=== PATIENT | female | born 1945 | race Caucasian/White ===

== ENCOUNTER → 2017-08-16 | Outpatient (CLI) | payer MEDICARE, OTHER ==
[~2017-08-16] MED LIST: AMITRIPTYLINE H50 M3 PO; ASPIR 8181 MG PO; BACTRIM DS TAB1 EACH PO; BENICAR40 MG PO; CRESTOR5 MG; FISH OIL 1,001000 M2 PO; FLAGYL500 MG; FLEXERIL PO; HIPREX1 GM PO; HYDROCHLOROTH12.5 MG PO; HYDROCODON-ACE1 EAC7 PO; IBUPROFEN 400400 M1 PO; KEFLEX500 M1 PO; LISINOPRIL-HCT1 EAC2 PO; MIRALAX17 GM PO; MIRALAX255 GM PO; NAPROSYN500 MG PO; NEXIUM40 MG PO; NORVASC5 M1 PO; OXYBUTYNIN 5 MG5 M1 PO; PERCOCET 5-3251 EACH PO; PROBIOTIC1 EAC4 PO; PROBIOTIC1 EACH; VICOPROFEN 2001 EACH PO
== END ==
LOC: M.ULTRA 08-15 16:44
DX: E04.2 Nontoxic multinodular goiter (principal); R59.9 Enlarged lymph nodes, unspecified

== ENCOUNTER → 2017-08-17 | Outpatient (CLI) | payer MEDICARE, OTHER | LOC: M.CT 15:04 | DX: I25.10 Atherosclerotic heart disease of native coronary artery without angina pectoris (principal); R59.0 Localized enlarged lymph nodes; J34.1 Cyst and mucocele of nose and nasal sinus; I70.0 Atherosclerosis of aorta; M25.78 Osteophyte, vertebrae; I65.29 Occlusion and stenosis of unspecified carotid artery; J32.8 Other chronic sinusitis; E04.9 Nontoxic goiter, unspecified ==

== ENCOUNTER → 2017-09-28 | Outpatient (CLI) | payer MEDICARE, OTHER ==
--- NOTE | 2017-10-03 17:17 | CARDNUC ---
[place] [address] CARDIAC NUCLEAR IMAGING REPORT Name: SCOTT DIGGS Room: [facility]#: [id number] Admission: 09/28/17 Attend Phys: Leatha Bowden MD Discharge: Date of : 41 Date of Service: 10/03/17 1717 Report #: [id number] THIS REPORT FOR: //name// APPROVED REPORT Exam: Nuclear Stress Test Indication: Chest pain Patient Location: Out-Patient Stress Tech: [facility] Stress Nurse: Savanna Sparrow RN Ht: 5 ft 7 in Wt: 174 lbs BSA: 1.91 m2 BMI: 27.2 Medical History Medical History: hypertension, diet controlled diabetes Medications: none Allergies: penicillin, cipro, macrodantin Previous Cardiac Procedures: none Exercise History: Indeterminate NM EXAM: Myocardial Perfusion REST/STRESS Imaging Protocol: Rest Tc-99m/Stress Tc-99m 1 day Resting Data Rest SPECT myocardial perfusion imaging was performed in supine position 45 minutes following the intravenous injection of 10.8 mCi of Tc-99m Sestamibi. Time of rest injection: 1310 Date: 09/28/2017 The images were gated to evaluate regional wall motion and calculate left ventricular ejection fraction. Administration Route: IV Administration Site: Left Hand Pharmacologic Stress Pharmacologic stress test was performed by injecting Regadenoson 0.4 mg IV push followed by the intravenous injection of 35.2 mCi of Tc-99m Sestamibi. Time of stress injection: 1435 Date: 09/28/2017 Administration Route: IV Administration Site: Left Hand Gated Stress SPECT was performed 45 minutes after stress injection. The images were gated to evaluate regional wall motion and calculate left [place] [address] CARDIAC NUCLEAR IMAGING REPORT Name: CATERINASCOTT Anthony Room: [facility]#: [id number] Admission: 09/28/17 Attend Phys: Leatha Bowden MD Discharge: Date of : 41 Date of Service: 10/03/17 1717 Report #: [id number] Prone imaging was performed. Study Quality Study: Good Artifact: No artifact Study Data At rest, the left ventricular ejection fraction was 78%.. Post stress, the left ventricular ejection was 81%.. TID = 0.86. Perfusion Normal left ventricular perfusion. Wall Motion Normal left ventricular wall motion. Nuclear Conclusion ECG Findings: negative for ischemia Clinical Findings: negative for ischemia Nuclear Findings: negative for ischemia Exercise Capacity: not assessed Left Ventricular Function: normal Risk Study: low Myocardial perfusion images show no defect to suggest infarct or ischemia. Left ventricular systolic function appears normal on gated studies. This is a low risk study. Interpreted by: Telly Garnica M.D. [facility] Electronically Approved: 10/03/2017 17:17:24 Stress Test Details Stress Test: Pharmacologic stress testing performed using 0.4 mg of regadenoson per 5 mL given IV over 10 seconds. Reason for pharmacologic stress test: physical limitation. HR Resting HR: 82 bpm Max Heart Rate (APMHR): 146 bpm Max HR Achieved: 118 bpm Target HR (85% APMHR): 124 bpm % of APMHR: 80 Recovery HR: 94 bpm BP Resting BP: 176/90 mmHg Max BP: 197/70 [place] [address] CARDIAC NUCLEAR IMAGING REPORT Name: SCOTT DIGGS [id number] Admission: 09/28/17 Attend Phys: Leatha Bowden MD Discharge: Date of : 41 Date of Service: 10/03/17 1717 Report #: [id number] ECG Resting ECG: Sinus Rhythm, normal EKG Stress ECG: Sinus Rhythm, normal EKG ST Change: None Arrhythmia: None Recovery ECG: Sinus Rhythm, normal EKG Recovery ST Change: None Recovery Arrhythmia: None Clinical Reason for Termination: Completed protocol Exercise duration: 0 min sec Exercise capacity: 1 METs The patient had no significant symptoms with Lexiscan infusion. Nurse Comments pt tolerated well Stress ECG Conclusion The baseline 12-lead electrocardiogram shows normal sinus rhythm without significant ST or T wave abnormality. EKGs during and post Lexiscan infusion show sinus rhythm without significant ST segment changes when compared to baseline. There were no stress-induced arrhythmias. <Conclusion> The baseline 12-lead electrocardiogram shows normal sinus rhythm without significant ST or T wave abnormality. EKGs during and post Lexiscan infusion show sinus rhythm without significant ST segment changes when compared to baseline. There were no stress-induced arrhythmias. <ELECTRONICALLY SIGNED> By: Telly Garnica MD, FACC 10/03/17 171 16 16 Telly Garnica MD, FACC /INF
== END ==
LOC: M.NUC 09-18 13:47
DX: I25.10 Atherosclerotic heart disease of native coronary artery without angina pectoris (principal); M54.2 Cervicalgia; I10 Essential (primary) hypertension; E11.9 Type 2 diabetes mellitus without complications

== ENCOUNTER → 2017-11-05 | Outpatient (CLI) | payer MEDICARE, OTHER ==
--- NOTE | 2017-11-05 14:46 | 2DMMODE ---
[place] [address] 2 D/M-MODE ECHOCARDIOGRAM Name: SCOTT DIGGS Room: [facility]#: [id number] Admission: 11/05/17 Attend Phys: Venkata Martinez, Discharge: Date of : 41 Date of Service: 11/05/17 1445 Report #: [id number] THIS REPORT FOR: //name// APPROVED REPORT Study performed: 11/05/2017 14:01:42 EXAM: Comprehensive 2D, Doppler, and color-flow Echocardiogram Patient Location: Out-Patient Status: routine BSA: 1.90 HR: 70 bpm BP: 123/70 mmHg Other Information Study Quality: Excellent Indications Murmur 2D Dimensions LVEF(%): 75.17 (>50%) IVSd: 11.02 (7-11mm) LVOT Diam: 20.87 (18-24mm) LVDd: 40.68 mm PWd: 12.45 (7-11mm) Ascending Ao: 27.90 (22-36mm) LVDs: 22.98 (25-40mm) Aortic Root: 30.78 mm Zarate's LVEF: 75.17 % Volumes Left Atrial Volume (Systole) LA ESV Index: 17.50 mL/m2 Aortic Valve AoV Peak Patrick.: 1.32 m/s AO Peak Gr.: 6.97 mmHg LVOT Max P.10 mmHg AO Mean Gr.: 3.80 mmHg LVOT Mean P.09 mmHg LVOT Max V: 1.23 m/s AO V2 VTI: 25.78 cm LVOT Mean V: 0.81 m/s SANDRINE (VTI): 3.51 cm2 LVOT V1 VTI: 26.44 cm Mitral Valve E/A Ratio: 0.82 MV Decel. Time: 240.35 [place] [address] 2 D/M-MODE ECHOCARDIOGRAM Name: SCOTT DIGGS Room: [facility]#: [id number] Admission: 11/05/17 Attend Phys: Venkata Martinez, Discharge: Date of : 41 Date of Service: 11/05/17 1445 Report #: [id number] MV E Max Patrick.: 0.76 m/s MV PHT: 69.70 ms MVA (PHT): 3.16 cm2 TDI E/Lateral E': 7.60 E/Medial E': 12.67 Medial E' Patrick.: 0.06 m/s Lateral E' Patrick.: 0.10 m/s Pulmonary Valve PV Peak Patrick.: 1.06 m/s PV Peak Gr.: 4.50 mmHg Tricuspid Valve TR Peak Gr.: 18.93 mmHg RVSP: 23.93 mmHg Left Ventricle The left ventricle is normal size. There is normal LV segmental wall motion. Mild concentric left ventricular hypertrophy. Left ventricular systolic function is normal. The left ventricular ejection fraction is within the normal range. LVEF is 60-65%. Grade I - abnormal relaxation pattern. Right Ventricle The right ventricle is normal size. The right ventricular systolic function is normal. Atria The left atrium size is normal. The right atrium size is normal. Aortic Valve The aortic valve is normal in structure. No aortic regurgitation is present. There is no aortic valvular stenosis. Mitral Valve The mitral valve is normal in structure. Trace mitral regurgitation. No evidence of mitral valve stenosis. Tricuspid Valve The tricuspid valve is normal in structure. Mild tricuspid regurgitation. The RVSP is __24 mmHg. Pulmonic Valve The pulmonary valve is normal in structure. There is no pulmonic [place] [address] 2 D/M-MODE ECHOCARDIOGRAM Name: SCOTT DIGGS Room: [facility]#: [id number] Admission: 11/05/17 Attend Phys: Venkata Martinez, Discharge: Date of : 41 Date of Service: 11/05/17 1445 Report #: [id number] Great Vessels The aortic root is normal in size. IVC is normal in size and collapses with >50% inspiration Pericardium There is no pericardial effusion. <Conclusion> Mild concentric left ventricular hypertrophy. LVEF is 60-65%. <ELECTRONICALLY SIGNED> By: Fer Mejía MD, [facility] 11/05/17 1445 1445 1445 Fer Mejía MD, FACC /INF
== END ==
LOC: M.CRD 10-25 17:07 → M.ULTRA 12:09
DX: I51.7 Cardiomegaly (principal); I07.1 Rheumatic tricuspid insufficiency; R25.2 Cramp and spasm; I73.9 Peripheral vascular disease, unspecified; I70.219 Atherosclerosis of native arteries of extremities with intermittent claudication, unspecified extremity

== ENCOUNTER 2017-12-03 06:54 | Emergency (ER) | payer MEDICARE, OTHER ==
[~2017-12-03] VITALS: Ht 170.2 cm; Wt 82.4 kg
[~2017-12-03 06:54] MED LIST changes: -ASPIR 8181 MG PO; -CRESTOR5 MG; -FISH OIL 1,001000 M2 PO; -FLEXERIL PO; -HIPREX1 GM PO; -HYDROCODON-ACE1 EAC7 PO; -KEFLEX500 M1 PO; -LISINOPRIL-HCT1 EAC2 PO; -MIRALAX17 GM PO; -NAPROSYN500 MG PO; -NORVASC5 M1 PO; -PROBIOTIC1 EAC4 PO
[2017-12-03] MEDS ORDERED: FISH OIL 1,001000 M2 PO (07:20)
[2017-12-03] MEDS ORDERED: PROBIOTIC1 EAC4 PO (07:20)
[2017-12-03] MEDS ORDERED: MIRALAX17 GM PO (07:20)
[2017-12-03] MEDS ORDERED: HIPREX1 GM PO (07:23)
[2017-12-03] MEDS ORDERED: KEFLEX500 M1 PO (07:23)
[2017-12-03] MEDS ORDERED: LISINOPRIL-HCT1 EAC2 PO (07:23)
[2017-12-03] MEDS ORDERED: NORVASC5 M1 PO (07:24)
[2017-12-03] MEDS ORDERED: ASPIR 8181 MG PO (07:24)
[2017-12-03 07:30] LABS: ABSOLUTE LYMPHOCYTES 1.1 thou/uL (0.8-5.3); ABSOLUTE MONOCYTES 0.5 thou/uL (0.0-1.2); ABSOLUTE NEUTROPHILS 3.1 thou/uL (1.6-8.1); BASOPHILS 0.5 %; HEMATOCRIT 38.7 % (37.0-47.0); HEMOGLOBIN 13.4 gm/dL (12.0-15.0); LYMPHOCYTES 23.1 %; MCHC 34.5 g/dL (28.0-37.0); MCV 95.7 fL (80.0-100.0); MONOCYTES 10.5 %; MPV 10.6 fl. (7.2-11.1); NUCLEATED RBCS 0 /100WBC; PLATELET COUNT* 131 thou/uL (150-400); POLYS 64.9 %; RBC 4.05 mil/uL (4.20-5.00); RDW-CV 13.1 % (10.5-14.5); WBC 4.8 thou/uL (4.0-11.0)
[2017-12-03 07:35] LABS: ANION GAP 9 mmol/L (7-16); BUN 22 mg/dL (7-18); CALCIUM 9.9 mg/dL (8.5-10.1); CHLORIDE 101 mmol/L (98-107); CO2 28 mmol/L (21-32); GLUCOSE 151 mg/dL (70-99); POTASSIUM 3.6 mmol/L (3.5-5.1); SODIUM 138 mmol/L (136-145)
[2017-12-03 07:41] LABS: INR 1.1; PROTIME 10.4 Seconds (9.20-11.50)
[2017-12-03 07:54] LABS: ALBUMIN 3.8 g/dL (3.4-5.0); ALKALINE PHOSPHATASE 163 U/L (46-116); CK-MB MASS 0.6 ng/mL (<0.5-3.6); LIPASE 323 U/L (73-393); NT-PRO BRAIN NAT PEPTIDE 40 pg/mL (<300); SGOT 38 U/L (15-37); SGPT 43 U/L (30-65); TOTAL BILIRUBIN 0.7 mg/dL (<0.1-1.0); TROPONIN-I LEVEL <0.06 ng/mL (<0.06)
[2017-12-03] MEDS ORDERED: NAPROSYN500 MG PO (09:33)
[2017-12-03] MEDS ORDERED: HYDROCODON-ACE1 EAC7 PO (09:33)
[2017-12-03] MEDS ORDERED: FLEXERIL PO (09:33)
[2017-12-03 09:38] VITALS: BP 137/62
--- NOTE | 2017-12-03 14:27 | EKG ---
[place] [address] ELECTROCARDIOGRAM REPORT Name: SCOTT DIGGS Room: [facility]#: [id number] Admission: 12/03/17 Attend Phys: Discharge: 12/03/17 Date of : 41 Report #: [id number] THIS REPORT FOR: //name// [facility] ED Test Date: 2017-12-03 Test Time: 07:01:20 Pat Name: SCOTT DIGGS Department: Room: Gender: F Town Marshal: Sebastian OLIVARES : 1945 Requested By: Bennett Roblero Order Number: [id number] MD: Silas Gillespie Measurements Intervals [place] Rate: 66 P: 64 HI: 179 QRS: 25 QRSD: 99 T: 78 QT: 420 QTc: 441 Interpretive Statements Sinus rhythm Minimal ST depression, lateral leads Compared to ECG 06/01/2017 12:17:27 ST (T wave) deviation now present Electronically Signed On 12-03-2017 14:27:03 CDT by Silas Gillespie [email or web address] <ELECTRONICALLY SIGNED> By: Silas Gillespie MD, [facility] 12/03/17 1427 0 0 Silas Gillespie MD, FACC /EPI
== END 2017-12-03 09:38 | disposition home or self-care (01) ==
LOC: M.ERS 06:54
PROVIDERS: Emergency Medicine
DX: R07.89 Other chest pain (principal); M54.6 Pain in thoracic spine; I10 Essential (primary) hypertension; E11.9 Type 2 diabetes mellitus without complications; Z90.710 Acquired absence of both cervix and uterus; Z90.89 Acquired absence of other organs; Z88.0 Allergy status to penicillin; Z88.8 Allergy status to other drugs, medicaments and biological substances; Z88.1 Allergy status to other antibiotic agents

== ENCOUNTER → 2017-12-19 | Outpatient (CLI) | payer MEDICARE, OTHER ==
[~2017-12-19] MED LIST changes: +ASPIR 8181 MG PO; +CRESTOR5 MG; +FISH OIL 1,001000 M2 PO; +FLEXERIL PO; +HIPREX1 GM PO; +HYDROCODON-ACE1 EAC7 PO; +KEFLEX500 M1 PO; +LISINOPRIL-HCT1 EAC2 PO; +MIRALAX17 GM PO; +NAPROSYN500 MG PO; +NORVASC5 M1 PO; +PROBIOTIC1 EAC4 PO
== END ==
LOC: M.RAD 12-13 13:27
DX: N63.20 Unspecified lump in the left breast, unspecified quadrant (principal); R92.8 Other abnormal and inconclusive findings on diagnostic imaging of breast; I25.10 Atherosclerotic heart disease of native coronary artery without angina pectoris

== ENCOUNTER 2018-02-25 19:39 | Emergency (ER) | payer MEDICARE, OTHER ==
[~2018-02-25] VITALS: Ht 170.2 cm; Wt 78.5 kg
[~2018-02-25 19:39] MED LIST changes: -CRESTOR5 MG
[2018-02-25] MEDS ORDERED: CRESTOR5 MG (19:59)
[2018-02-25 22:30] VITALS: BP 154/80
== END 2018-02-25 22:32 | disposition home or self-care (01) ==
LOC: M.ERS 19:39
DX: S81.011A Laceration without foreign body, right knee, initial encounter (principal); S40.022A Contusion of left upper arm, initial encounter; I10 Essential (primary) hypertension; E11.9 Type 2 diabetes mellitus without complications; Z90.710 Acquired absence of both cervix and uterus; Z90.89 Acquired absence of other organs; Z88.0 Allergy status to penicillin; Z88.8 Allergy status to other drugs, medicaments and biological substances; V87.8XXA Person injured in other specified noncollision transport accidents involving motor vehicle (traffic), initial encounter; Y93.55 Activity, bike riding; Y92.89 Other specified places as the place of occurrence of the external cause; Y99.8 Other external cause status

== ENCOUNTER → 2018-07-16 | Outpatient (CLI) | payer MEDICARE, OTHER ==
[~2018-07-16] MED LIST changes: +CRESTOR5 MG
== END ==
LOC: M.ULTRA 07:22
DX: K74.60 Unspecified cirrhosis of liver (principal); R16.1 Splenomegaly, not elsewhere classified

== ENCOUNTER → 2018-07-25 | Outpatient (CLI) | payer MEDICARE, OTHER | LOC: M.RAD 07-19 13:39 | DX: R92.8 Other abnormal and inconclusive findings on diagnostic imaging of breast (principal) ==

== ENCOUNTER → 2018-08-08 | Outpatient (CLI) | payer MEDICARE, OTHER ==
--- NOTE | 2018-08-12 10:06 | PATH ---
[address] [address] PATHOLOGY RPT PROCEDURE Name: SCOTT FERRARO Room: [facility] LARRY Perera#: [id number] Admission: 08/08/18 Date of : 41 Discharge: Report #: [id number] Path Case #: [id number] [facility] Accession Number: [id number] . 01 Material submitted: . LEFT BREAST . 01 Clinical history: . 0.82 x 0.48 x 0.45 cm mass, subareolar 1 o'clock . 02 Diagnosis: Mass, left breast, subareolar, 1:00, image-guided core biopsies: - Ductal papilloma and cystic apocrine change with mild chronic inflammation, negative for atypia. See comment. (ORALIA:marilyn; 08/09/2018) QMS/08/09/2018 . 02 Comment: Reviewed with Dr. Jennifer Torres, who agrees with the diagnosis. . 02 Electronically signed: . Roel Ny MD, Pathologist NPI- [id number] . 01 Gross description: . Received in formalin labeled "Scott Ferraro, left breast subareolar 1:00," are multiple needle cores of [place]-kn[place] fibrofatty tissue measuring 2.6 x 2.4 x 0.8 cm in aggregate dimensions. The tissue is submitted in its entirety in cassettes A1 through A3. The cold ischemic time is 3 minutes. The total formalin fixation time is 12 hours and 32 minutes. (TSD; 08/08/2018) TOB/TOB . 02 Pathologist provided ICD-10: N61.0, N64.52 . 02 CPT . 552285 Specimen Comment: A courtesy copy of this report has been sent to Specimen Comment: [phone], , , . Specimen Comment: Report sent to ,DR MTZ,DR HERNANDEZ / DR SOUSA Specimen Comment: A duplicate report has been generated due to demographic updates. Performed at: [address] [facility], [place], [place] [id number] MD Dev Blakely MD Phone: [phone] [place] [address] PATHOLOGY RPT PROCEDURE Name: SCOTT FERRARO [facility] [id number] Admission: 08/08/18 Date of : 41 Discharge: Report #: [id number] Path Case #: [id number] Performed at: 02 [facility] [place] [address], [place], [place] [id number] MD Roel Ny MD Phone: [phone]
== END | disposition home or self-care (01) ==
LOC: M.ULTRA 07:43
DX: D24.2 Benign neoplasm of left breast (principal); N61.0 Mastitis without abscess; R92.1 Mammographic calcification found on diagnostic imaging of breast

== ENCOUNTER → 2018-12-25 | Outpatient (CLI) | payer MEDICARE, OTHER | LOC: M.ULTRA 12:35 | DX: D24.2 Benign neoplasm of left breast (principal) ==

== ENCOUNTER → 2019-04-09 | Outpatient (CLI) | payer MEDICARE, OTHER | LOC: M.ULTRA 10:30 | DX: D24.2 Benign neoplasm of left breast (principal) ==

== ENCOUNTER → 2019-04-25 | Day surgery (SDC) | payer MEDICARE, OTHER ==
[~2019-04-25] MED LIST changes: +CINNAMON500 MG PO; -CRESTOR5 MG; +CRESTOR5 MG PO; +EPIDIOLEX100 MG/1 M PO; +NORCO 5-325 TA1 EAC1 PO; +[UNRECOGNIZED DRUG - OTHER] PO
[2019-04-25 06:15] LABS: HEMATOCRIT 37.7 % (37.0-47.0); MCH 31.7 pg (26.0-34.0); MCHC 34.4 g/dL (28.0-37.0); MCV 92.2 fL (80.0-100.0); MPV 9.4 fl. (7.2-11.1); RBC 4.1 mil/uL (4.20-5.00); RDW-CV 13.3 % (10.5-14.5); WBC 6.1 thou/uL (4.0-11.0)
[2019-04-25 06:21] LABS: POTASSIUM 3.6 mmol/L (3.5-5.1)
[2019-04-25 06:25] LABS: ALBUMIN 3.8 g/dL (3.4-5.0); TOTAL BILIRUBIN 0.6 mg/dL (<0.1-1.0); TOTAL PROTEIN 7.8 g/dL (6.4-8.2)
--- NOTE | 2019-04-25 10:08 | EKG ---
[place] [address] ELECTROCARDIOGRAM REPORT Name: SCOTT DIGGS GARY Room: [facility]#: [id number] Admission: 04/25/19 Attend Phys: Lori Esparza MD Discharge: Date of : 41 Report #: [id number] THIS REPORT FOR: //name// [facility] Test Date: 2019-04-25 Test Time: 07:22:55 Pat Name: SCOTT DIGGS Department: Room: Gender: F Firer Low Pressure: RT : 1945 Requested By: Lori Esparza Order Number: [id number] Reading MD: Fer Mejía Measurements Intervals [place] Rate: 65 P: 48 NH: 184 QRS: 6 QRSD: 98 T: 59 QT: 419 QTc: 436 Interpretive Statements Sinus rhythm Compared to ECG 12/03/2017 07:01:20 ST (T wave) deviation no longer present Electronically Signed On 04-25-2019 10:08:49 CDT by Fer Mejía [email or web address] <ELECTRONICALLY SIGNED> By: Fer Mejía MD, [facility] 04/25/19 1008 1 1 Fer Mejía MD, FACC /EPI
--- NOTE | 2019-04-28 17:06 | PATH ---
[address] [address] PATHOLOGY RPT PROCEDURE Name: CATERINASCOTT VEGA Room: [facility]#: [id number] Admission: 04/25/19 Date of : 41 Discharge: Report #: [id number] Path Case #: [id number] [facility] Accession Number: [id number] . 01 Material submitted: . breast - L BREAST PAPILLOMA, LONG STITCH LAT, SHORT STITCH SUP, DOUBLE STITCH DEEP. Modifiers: left . 01 Clinical history: . Intraductal papilloma of left breast . 02 Diagnosis: Left breast papilloma: - Benign breast tissue with changes of prior biopsy, incidental 1 mm ductal papilloma and usual duct epithelial hyperplasia, negative for atypia. See comment. (ORALIA:estefani; 04/28/2019) MBR 04/28/2019 1513 Local . 02 Comment: Prior biopsy changes are noted in slides A7 through A12 and found incidentally in A2 is an isolated 1 mm ductal papilloma. Recent prior left breast subareolar 1:00 image-guided core biopsy showed ductal papilloma and cystic apocrine change with mild chronic inflammation, negative for atypia ([id number]). (ORALIA:estefani; 04/28/2019) . 02 Electronically signed: . Roel Ny MD, Pathologist NPI- [id number] . 01 Gross description: . The specimen is received in formalin, labeled "Scott Ferraro, left breast papilloma" and consists of an oriented 12 g lumpectomy specimen with a long stitch lateral, short stitch superior, and double deep. Protruding from the lateral aspect is a metal localization wire. The specimen measures 4.9 cm L-M, 2.6 cm S-I, 1.4 cm A-P, and is inked as follows: superior-green, superior-green, medial-red, lateral-yellow, anterior-orange, and posterior-black. It is sectioned from medial to lateral revealing an orange-rocha mass measuring 1.5 x 0.9 x 0.6 cm which extends from the margins as follows: Greater than 1 cm medial, greater than 1 cm lateral, 0.3 cm anterior, 0.3 cm posterior, 0.4 cm inferior, and 0.9 cm superior. The rest of the parenchyma consists of fibrotic cut surfaces with hemorrhage and probable biopsy changes lateral the mass. No additional masses or lesions are identified. The specimen is entirely submitted as follows: . A1: Medial, [place] [address] PATHOLOGY RPT PROCEDURE Name: SCOTT FERRARO Room: [facility]#: [id number] Admission: 04/25/19 Date of : 41 Discharge: Report #: [id number] Path Case #: [id number] A2-A13: Entire mid specimen from medial to lateral A14: Lateral, perpendicular . The specimen was excised at 10:41 AM on 04/25/2019 and placed in formalin at 10:56 AM. The cold ischemic time is 15 minutes and the total formalin fixation time is greater than 6 hours less than 72 hours. (SDY; 04/26/2019) TORIU/LEONIDAS 04/26/2019 1134 Local . 02 Pathologist provided ICD-10: D24.2, N62 . 02 CPT . 885594 Specimen Comment: A courtesy copy of this report has been sent to Specimen Comment: [phone], . Specimen Comment: Report sent to / DR SOUSA Performed at: 01 [facility] [address], [place], [place] [id number] MD Dev Blakely MD Phone: [phone] Performed at: [facility] [address] , [place], [place] [id number] MD Roel Ny MD Phone: [phone]
--- NOTE | 2019-05-09 12:13 | OP ---
[address] [address] OPERATIVE REPORT Name: CATERINASCOTT HUTCHINSON Room: [facility].#: [id number] Admission: 04/25/19 Attend Phys: Lori Esparza MD Discharge: Date of : 41 Report #: [id number] THIS REPORT FOR: //name// CC: Leatha Esparza DATE OF SERVICE: 04/25/2019 PREOPERATIVE DIAGNOSIS: Left breast papilloma. POSTOPERATIVE DIAGNOSIS: Left breast papilloma plus acquired deformity, left breast. . PROCEDURE: 1. Left breast needle localized excision of papilloma. 2. Left breast reconstruction using local tissue flap, 3 x 3 cm x2. SURGEON: Dr. Lori Esparza. LAWYER REAL ESTATE: None. ANESTHESIA: General anesthesia. ESTIMATED BLOOD LOSS: 1 mL. COMPLICATIONS: None. FINDINGS: Clip in the mammographic specimen. SPECIMENS: Left breast papilloma. OTHER INCISION: 4 cm in length, 3 cm from nipple, 3 o'clock position, periareolar. DISPOSITION: Stable to PACU. INDICATIONS: The patient is a 73-year-old female who had imaging in 06/2018 at [place] showing a 7 mm hypoechoic nodule in the subareolar left breast. Biopsy on 08/08/2018 showed papilloma without atypia. She had a very significant hematoma with bruising post-procedure. Due to the size of the hematoma, the decision was made to postpone definitive surgical excision. She was rechecked at 3 months, still had a hematoma present and has since also had a fall with injury and other issues and requested an additional delay in the procedure. A repeat ultrasound in 11/2018 showed persistent and unchanged nodule and also a 1.5 cm mass, probable hematoma. She was doing better and was recovered from her injuries and realized that we needed to proceed with the plan for excision. Risks and benefits for excision [place] [address] OPERATIVE REPORT Name: CATERINASCOTT VEGA Room: [facility].#: [id number] Admission: 04/25/19 Attend Phys: Lori Esparza MD Discharge: Date of : 41 Report #: [id number] discussed with the patient and delineated in H and P and she agreed to proceed. DESCRIPTION OF PROCEDURE: The patient was brought to the operating room after informed consent had been obtained prior to surgery, she was taken to ultrasound for wire localization of the mass. She was then placed under general anesthesia in the supine position with the left arm extended. The left breast was then prepped and draped in normal sterile manner. Prior to skin incision a combination of 1% lidocaine plain and 0.5% Marcaine with epinephrine was used. A periareolar skin incision was made with a knife. This was deepened into the subcutaneous tissues using the Bovie electrocautery. A path was created in the superficial mastectomy plane laterally toward the wire. Once the wire was identified, it was grasped with 2 hemostats and brought into the incision. The Bovie electrocautery was then used to excise the lump of tissue around the pathway of the wire and palpable biopsy change. Once completely removed, it was labeled for orientation purposes and sent off for mammographic evaluation. Mammogram confirmed that the clip was indeed within the mammographic specimen. The wound bed was copiously irrigated. It was noted to be adequately hemostatic. I then proceeded with mobilization of tissue flaps for closure. I then proceeded with mobilization of additional tissue in the superficial mastectomy plane with the Bovie electrocautery, mobilizing tissue flaps to facilitate closure of the space and defect. This was performed in the superior lateral, medial and inferior regions to close the defect created more laterally. Once this tissue flaps were created, they were reapproximated with interrupted 3-0 Vicryl sutures tied to help fill the space. The deep dermal layers were then closed with interrupted 3-0 Vicryl sutures and skin was closed with 4-0 Monocryl in a subcuticular manner. Prior to closure of the lumpectomy cavity, a single Hemoclip was placed to denita the lumpectomy bed. The wound was then dressed with Dermabond dressing. The patient tolerated the procedure well. Sponge, lap and needle counts were correct x 2 at the end of procedure. She was transferred to recovery room in stable condition. <ELECTRONICALLY SIGNED> By: Lori Esparza MD 05/09/19 1213 1109 1130Minjavier Esparza MD /nt
== END | disposition home or self-care (01) ==
LOC: M.SUR 05:50 → EDSTATUS 08:00 → M.RAD 08:00 → M.SUR 08:00
PROVIDERS: Surgery
DX: D24.2 Benign neoplasm of left breast (principal); Z88.0 Allergy status to penicillin; Z88.8 Allergy status to other drugs, medicaments and biological substances; Z79.899 Other long term (current) drug therapy; Z79.82 Long term (current) use of aspirin

== ENCOUNTER → 2019-05-21 | Outpatient (CLI) | payer MEDICARE, OTHER | LOC: M.RAD 11:04 | DX: M25.571 Pain in right ankle and joints of right foot (principal) ==

== ENCOUNTER → 2019-06-11 | Outpatient (CLI) | payer MEDICARE, OTHER | LOC: M.MRI 07:45 | DX: I67.82 Cerebral ischemia (principal) ==

== ENCOUNTER → 2019-07-10 | Outpatient (CLI) | payer MEDICARE, OTHER | LOC: M.RAD 10:04 | DX: Z12.31 Encounter for screening mammogram for malignant neoplasm of breast (principal) ==

== ENCOUNTER → 2019-08-27 | Outpatient (CLI) | payer MEDICARE, OTHER | LOC: M.RAD 12:27 | DX: M47.812 Spondylosis without myelopathy or radiculopathy, cervical region (principal); M48.02 Spinal stenosis, cervical region ==

== ENCOUNTER → 2019-08-28 | Outpatient (CLI) | payer MEDICARE, OTHER | LOC: M.ULTRA 09:43 | DX: D24.2 Benign neoplasm of left breast (principal) ==

== ENCOUNTER 2020-04-05 11:02 | Emergency (ER) | payer MEDICARE, OTHER ==
[~2020-04-05] VITALS: Ht 170.2 cm; Wt 79.4 kg
[2020-04-05] MEDS ORDERED: HIPREX1 GM PO (11:18)
[2020-04-05] MEDS ORDERED: METFORMIN HCL500 M3 PO (11:18)
[2020-04-05] MEDS ORDERED: B-125000 MC1 SUBLING (11:19)
[2020-04-05 13:30] VITALS: BP 128/54
== END 2020-04-05 13:30 | disposition home or self-care (01) ==
LOC: M.ERS 11:02
DX: S63.591A Other specified sprain of right wrist, initial encounter (principal); S83.8X1A Sprain of other specified parts of right knee, initial encounter; M25.571 Pain in right ankle and joints of right foot; M79.644 Pain in right finger(s); I10 Essential (primary) hypertension; E11.9 Type 2 diabetes mellitus without complications; Z90.710 Acquired absence of both cervix and uterus; Z90.89 Acquired absence of other organs; Z88.0 Allergy status to penicillin; Z88.1 Allergy status to other antibiotic agents; Z88.8 Allergy status to other drugs, medicaments and biological substances; W18.39XA Other fall on same level, initial encounter; Y93.89 Activity, other specified; Y92.89 Other specified places as the place of occurrence of the external cause; Y99.8 Other external cause status

== ENCOUNTER → 2020-09-22 | Outpatient (CLI) | payer MEDICARE, OTHER ==
[~2020-09-22] MED LIST changes: +B-125000 MC1 SUBLING; +METFORMIN HCL500 M3 PO
== END ==
LOC: M.RAD 09:01 → M.ULTRA 09:01
PROVIDERS: ATTEND Family Medicine
DX: Z12.31 Encounter for screening mammogram for malignant neoplasm of breast (principal); K80.20 Calculus of gallbladder without cholecystitis without obstruction; R16.1 Splenomegaly, not elsewhere classified

== ENCOUNTER → 2021-03-10 | Outpatient (CLI) | payer MEDICARE, OTHER | LOC: M.RAD 09:35 | PROVIDERS: ATTEND Nurse Practitioner Family | DX: M47.817 Spondylosis without myelopathy or radiculopathy, lumbosacral region (principal); M43.17 Spondylolisthesis, lumbosacral region ==

== ENCOUNTER → 2021-03-30 | Outpatient (CLI) | payer MEDICARE, OTHER | LOC: M.ULTRA 09:16 | PROVIDERS: ATTEND Family Medicine | DX: K80.20 Calculus of gallbladder without cholecystitis without obstruction (principal); N20.0 Calculus of kidney; R16.1 Splenomegaly, not elsewhere classified ==

== ENCOUNTER → 2021-08-01 | Outpatient (CLI) | payer MEDICARE, OTHER | LOC: M.RAD 10:24 | PROVIDERS: ATTEND Family Medicine | DX: Z13.820 Encounter for screening for osteoporosis (principal); M85.88 Other specified disorders of bone density and structure, other site; M81.0 Age-related osteoporosis without current pathological fracture ==